=== PATIENT | male | born 1935 | race Caucasian/White ===

== ENCOUNTER 2023-03-20 03:48 | Emergency (ER) | payer MEDICARE ==
[~2023-03-20] VITALS: Ht 170.2 cm; Wt 77.3 kg
[2023-03-20] MEDS ORDERED: IRBE75TA4 PO (03:54)
[2023-03-20 04:26] LABS: BASO % 0.2 % (0.0-1.0); EOS % 0.5 % (0.0-3.0); LYMPH # 0.4 10^3/uL (1.5-5.0); LYMPH % 6.9 % (24.0-44.0); MEAN CORPUSCULAR HEMOGLOBIN 33.1 pg (27.0-33.0); MEAN CORPUSCULAR HGB CONC 33.3 g/dl (32.0-36.5); MEAN CORPUSCULAR VOLUME 99.2 fl (80.0-96.0); MONO # 0.4 10^3/uL (0.0-0.8); MONO % 5.6 % (2.0-8.0); NEUTROPHILS # 5.4 10^3/uL (1.5-8.5); NEUTROPHILS % 86.6 % (36.0-66.0); PLATELET COUNT, AUTOMATED 109 10^3/uL (150-450); RED BLOOD COUNT 3.63 10^6/uL (4.30-6.10); WHITE BLOOD COUNT 6.2 10^3/uL (4.0-10.0)
[2023-03-20 04:44] LABS: INR 1.14; PROTHROMBIN TIME 14.8 SECONDS (12.5-14.5)
[2023-03-20 04:48] LABS: LIPASE 35 U/L (12-53)
[2023-03-20 04:50] LABS: ALBUMIN 3.9 G/DL (3.2-5.2); ALKALINE PHOSPHATASE 80 U/L (46-116); ALT/SGPT 13 U/L (7.0-40); AST/SGOT 26 U/L (<34); BILIRUBIN,DIRECT 0.3 MG/DL (<0.4); BLOOD UREA NITROGEN 30 MG/DL (9-23); CALCIUM LEVEL 10.1 MG/DL (8.3-10.6); CARBON DIOXIDE LEVEL 24 MMOL/L (20-31); CHLORIDE LEVEL 106 MMOL/L (98-107); CK-MB VALUE MASS < 1.0 NG/ML (<3.6); CREATININE FOR GFR 1.29 MG/DL (0.70-1.30); GLOMERULAR FILTRATION RATE 55.8 (>35); GLUCOSE, FASTING 113 MG/DL (74-106); SODIUM LEVEL 137 MMOL/L (136-145); TOTAL PROTEIN 7.2 G/DL (5.7-8.2)
[2023-03-20 04:51] LABS: THYROID STIMULATING HORMONE 2.329 uIU/ML (0.55-4.78)
[2023-03-20 04:55] LABS: CPK CREATINE PHOSPHOKINASE 84 U/L (46-171); MB/CK RELATIVE INDEX 1.19 (< OR =4)
[2023-03-20 05:53] LABS: CK-MB VALUE MASS 1.1 NG/ML (<3.6)
[2023-03-20 05:54] LABS: MB/CK RELATIVE INDEX 1.44 (< OR =4)
[2023-03-20 08:26] LABS: CK-MB VALUE MASS 1.3 NG/ML (<3.6)
[2023-03-20 08:34] LABS: MB/CK RELATIVE INDEX 1.56 (< OR =4)
[2023-03-20] MEDS ORDERED: ISOVUE-370 76% 100ML VIAL As Ordered ONE (08:48)
[2023-03-20] MEDS ORDERED: ATOR40TA75 PO (12:50)
[2023-03-20] MEDS ORDERED: ASPI81TA26 PO (12:50)
[2023-03-20 12:56] VITALS: BP 134/63; O2SAT 91
[2023-03-20 13:04] VITALS: TEMP 98.1
== END 2023-03-20 13:05 | disposition home or self-care (01) ==
LOC: M ED 03:48
DX: J06.9 Acute upper respiratory infection, unspecified (principal); B34.1 Enterovirus infection, unspecified; B34.8 Other viral infections of unspecified site; I10 Essential (primary) hypertension; Z79.899 Other long term (current) drug therapy
CPT/HCPCS: 36415; 71045; 71275; 80048; 80076; 82550; 82553; 83690; 83880; 84443; 84484; 85025; 85610; 87486; 87581; 87633; 87798; 93005; 93041; 94760; 99285; Q9967